=== PATIENT | male | born 1985 | race Caucasian/White ===

== ENCOUNTER 2017-01-27 14:41 | Outpatient (RCR) | payer OTHER | END 2017-01-28 | LOC: M PT 14:41 | PROVIDERS: ATTEND Hospitalist | DX: Z51.89 Encounter for other specified aftercare (principal); M54.6 Pain in thoracic spine ==

== ENCOUNTER 2017-02-23 10:15 | Outpatient (RCR) | payer OTHER | END 2017-02-27 | LOC: M PT 10:15 | PROVIDERS: ATTEND Hospitalist | DX: Z51.89 Encounter for other specified aftercare (principal); M54.6 Pain in thoracic spine ==

== ENCOUNTER 2017-08-01 13:54 | Emergency (ER) | payer OTHER, SELFPAY | END 2017-08-01 15:40 | disposition home or self-care (01) | LOC: M ED 13:54 | DX: S20.229A Contusion of unspecified back wall of thorax, initial encounter (principal); W10.9XXA Fall (on) (from) unspecified stairs and steps, initial encounter; Y92.099 Unspecified place in other non-institutional residence as the place of occurrence of the external cause; Y93.9 Activity, unspecified; I10 Essential (primary) hypertension; Z79.899 Other long term (current) drug therapy | CPT/HCPCS: 72072 ==

== ENCOUNTER → 2018-05-14 | Outpatient (REF) | payer OTHER ==
[~2018-05-14] MED LIST: IBUP-1022 PO; LISI-538 PO; TIZA4CAP PO
== END ==
LOC: M LAB REF 12:30
PROVIDERS: ATTEND Physician Assistant
DX: L05.01 Pilonidal cyst with abscess (principal)

== ENCOUNTER 2018-09-30 13:38 | Emergency (ER) | payer OTHER ==
[~2018-09-30] VITALS: Ht 185.4 cm; Wt 136.7 kg
[2018-09-30] MEDS ORDERED: LIDOCAINE 1% MDV 20ML VIAL IM ONE (14:15)
[2018-09-30] MEDS ORDERED: ADACEL/BOOSTRIX VACCINE (DIPHTH/PERTUSS/ACELL/TETANUS)0.5ML SYR (90715) IM ONE (14:15)
[2018-09-30] MEDS ORDERED: ACETAMINOPHEN 325 MG TAB PO ONE (15:15)
[2018-09-30 15:17] VITALS: BP 138/87
== END 2018-09-30 15:19 | disposition home or self-care (01) ==
LOC: M ED 13:38
DX: S61.217A Laceration without foreign body of left little finger without damage to nail, initial encounter (principal); W29.0XXA Contact with powered kitchen appliance, initial encounter; Y92.89 Other specified places as the place of occurrence of the external cause; Y99.0 Civilian activity done for income or pay; I10 Essential (primary) hypertension; G43.909 Migraine, unspecified, not intractable, without status migrainosus; Z79.899 Other long term (current) drug therapy

== ENCOUNTER → 2018-11-03 | Outpatient (CLI) | payer OTHER ==
[2018-11-03 10:48] LABS: ALBUMIN 3.8 GM/DL (3.2-5.2); ALT/SGPT 72 U/L (12-78); BILIRUBIN,TOTAL 0.4 MG/DL (0.2-1.0); BLOOD UREA NITROGEN 16 MG/DL (7-18); CARBON DIOXIDE LEVEL 29 MEQ/L (21-32); CHLORIDE LEVEL 106 MEQ/L (98-107); CHOLESTEROL LEVEL 176 MG/DL (<200); CREATININE FOR GFR 1.02 MG/DL (0.70-1.30); GLOMERULAR FILTRATION RATE > 60.0 (>60); GLUCOSE, FASTING 128 MG/DL (70-100); HDL CHOLESTEROL 44 MG/DL (>40); LDL CHOLESTEROL 111 MG/DL (<100); NON-HDL-C 132 MG/DL; SODIUM LEVEL 140 MEQ/L (136-145); TOTAL PROTEIN 7.5 GM/DL (6.4-8.2); TRIGLYCERIDES LEVEL 105 MG/DL (<150)
[2018-11-03 11:38] LABS: HIV 1&2 SCREEN CENTAUR NEGATIVE (NEGATIVE)
== END ==
LOC: M LAB 09:46
PROVIDERS: ATTEND Family Medicine
DX: Z00.01 Encounter for general adult medical examination with abnormal findings (principal)

== ENCOUNTER 2018-11-11 05:52 | Day surgery (SDC) | payer OTHER ==
[~2018-11-11] VITALS: Ht 185.4 cm; Wt 134.3 kg
[2018-11-11] MEDS ORDERED: BUPIVACAINE HCL 0.25% 30 ML VIAL As Ordered ONE (06:56)
[2018-11-11] MEDS ORDERED: LIDOCAINE 1% SDV INJ 30 ML VIAL As Ordered ONE (06:56)
[2018-11-11] MEDS ORDERED: LR 1,000 ML IV SCH ×2 (07:00→09:30)
[2018-11-11] MEDS ORDERED: LIDOCAINE 1% MDV 20ML VIAL SQ PRN (07:00)
[2018-11-11] MEDS ORDERED: MIDAZOLAM INJ 2 MG/2 ML VIAL (J2250) As Ordered ONE (07:51)
[2018-11-11] MEDS ORDERED: fentaNYL 100 MCG/2 ML INJECTION (J3010) As Ordered ONE (07:51)
[2018-11-11] MEDS ORDERED: CHLOROPROCAINE 2 % INJ PRES.FREE 20 ML VIAL (J2400) As Ordered ONE (07:51)
[2018-11-11] MEDS ORDERED: PROPOFOL 200 MG/20 ML VIAL As Ordered ONE ×6 (07:51→08:51)
[2018-11-11] MEDS ORDERED: ePHEDrine SULFATE 25 MG/5 ML(5MG/ML) SYRINGE As Ordered ONE (08:15)
[2018-11-11] MEDS ORDERED: BUPIVACAINE HCL 0.25% 10 ML VIAL As Ordered ONE (08:20)
[2018-11-11] MEDS ORDERED: BUPIVACAINE LIPOSOME/PF 1.3% 20ML VIAL (13.3MG/ML)(EXPAREL)(C9290 PER1MG) As Ordered ONE (08:21)
[2018-11-11] MEDS ORDERED: PHENYLephrine HCL 500 MCG/5 ML (100MCG/ML) SYRINGE (J2370) As Ordered ONE (08:34)
[2018-11-11] MEDS ORDERED: PERCOCET 5MG/325MG TAB As Ordered ONE (09:13)
[2018-11-11] MEDS ORDERED: NORCO, ANEXSIA 5/325MG TABLET (HYDROcodone/ACETAMINOPHEN) PO PRN ×3 (09:30)
[2018-11-11] MEDS ORDERED: ONDANSETRON 4MG/2ML VIAL (J2405) IV PRN ×2 (09:30)
[2018-11-11] MEDS ORDERED: KETOROLAC 30 MG/ML VIAL (J1885) IV PRN (09:30)
[2018-11-11] MEDS ORDERED: PERCOCET 5MG/325MG TAB PO PRN (09:30)
[2018-11-11] MEDS ORDERED: fentaNYL 100 MCG/2 ML INJECTION (J3010) IV PRN (09:30)
--- NOTE | 2018-11-11 09:40 | ROOPDOC ---
[facility] Report Of Operation Report of Operation DATE OF PROCEDURE: 11/11/18 PREPROCEDURE DIAGNOSES: Pilonidal cyst and sinus tract. POSTPROCEDURE DIAGNOSES: Same. PROCEDURE: Excision of pilonidal cyst and sinus tract with closure of the defect via rotation flap. SURGEON: Sam Boyer MD CLAIM SERVICE REPRESENTATIVE: Sunil Sheffield (MS III) ANESTHESIA: GENERAL ANESTHESIA ESTIMATED BLOOD LOSS: Approximately 20 mL. COMPLICATIONS: NONE. REMARKS: well formed sinus tract that is about 4-5 cms in length into the deep jean claude cleft midway between sacrum and coccyx. I probed the midline pits for any connections to the tract and opened up one midline pit but found to active connections/sinus tract connecting it.. DESCRIPTION OF PROCEDURE: Patient received a dose of Ancef 2 g IV preoperatively for wound prophylaxis. Hair around the area of the gluteal cleft from the sacrum to the anal verge was clipped. He is brought to the operating room, spinal anesthesia induced and tested. He was placed on a prone jackknife position. Compression boots placed on his lower extremities for DVT prophylaxis. Area around his lower back, gluteal cleft area was then prepped and draped in usual sterile fashion.We paused for a surgical timeout using both pre-incision safety checklist to verify correct patient, procedure site and additional clinical information prior to beginning the procedure. On initial examination he has an area of thickening around the left side of the midline at about the sacral level with no active drainage. About 4-5 cm from this are 2-3 midline class and weighed down below the coccygeal level close to the anal verge or additional 3 midline class all of them is no active drainage. There is some subcutaneous thickening up on the area above the sacral level with previous I&D scars. The subcutaneous veins the tissue was well infiltrated with local anesthesia. I used a combination of 1% lidocaine mixed with 1/4% Marcaine. I started with a vertical midline incision the left side of the midline creating a cruciate skin incision and compressing the area of skin thickening or to previous drainage was towards the area of where the midline class were at about the coccygeal level. This was deepened through the subcutaneous tissue. The thickened tissue and and encapsulated sinus tract was located deep into the subcutaneous tissue. This was well defined. We circumferentially dissected this from the subcutaneous tissue and followed this throughout its course and seems to and at about the coccygeal level deep in the cleft. This was circumferentially dissected free and removed including all the involved subcutaneous tissue and skin. I used a probe to see if there are any connections and the remaining midline class. I opened up the lower midline class close to the anal verge as this seems to still have fresh opening. I did not find any sinus tracts connecting this to the above pilonidal cyst collection. The wound was temporarily packed and hemostasis performed with Bovie cautery. I then created a subcutaneous flap on the right side to move the tissue past the midline onto the other side. Once an adequate flap was created I tacked the deep subcutaneous tissue to the lumbodorsal fascia past the midline on the other side with 2-0 Vicryl. I left a 7 flat SUNSHINE drain in the deep subcutaneous tissue infiltrated the area with a mixture of Exparel and 14% Marcaine and left some Love hemostatic powder in the closed cavity. The flap was then closed in layers to the other side with 3-0 Vicryl in the deep and superficial subcutaneous tissue as well as the dermis and 3-0 nylon placed in a horizontal mattress position using 3-0 nylon. The drain was secured to the skin with same 3-0 nylon. Xeroform dressing as well as bulky gauze dressing and postop underwear was then used to secure the dressings. Patient was then promptly awakened and returned to the recovery room in stable condition. SAM BOYER MD Nov 11, 2018 09:40
[2018-11-11 10:28] VITALS: BP 118/64
== END 2018-11-11 10:45 | disposition home or self-care (01) ==
LOC: M SDC 05:52
PROVIDERS: ATTEND Surgery
DX: L05.91 Pilonidal cyst without abscess (principal); I10 Essential (primary) hypertension; Z87.891 Personal history of nicotine dependence; Z79.899 Other long term (current) drug therapy
CPT/HCPCS: 11772; 88304; C9290; J0690; J2250; J2370; J2400; J3010

== ENCOUNTER → 2019-07-25 | Outpatient (CLI) | payer OTHER ==
--- NOTE | 2019-07-25 18:23 | REP ---
RIGHT SHOULDER, THREE VIEWS: There is no evidence of an acute fracture, dislocation or intrinsic bone disease. I do not see significant degenerative joint disease. IMPRESSION: No fracture or dislocation. Electronically Signed by Daryl Mendieta MD 07/25/2019 08:23 P
== END ==
LOC: M WUC 17:08
PROVIDERS: ATTEND Physician Assistant
DX: M25.511 Pain in right shoulder (principal)

== ENCOUNTER → 2019-08-29 | Outpatient (RCR) | payer OTHER | LOC: M PT 08-15 11:22 | PROVIDERS: ATTEND Orthopaedic Surgery | DX: Z51.89 Encounter for other specified aftercare (principal); M65.811 Other synovitis and tenosynovitis, right shoulder; M75.01 Adhesive capsulitis of right shoulder ==

== ENCOUNTER 2019-09-14 08:45 | Outpatient (RCR) | payer OTHER | END 2019-09-28 | LOC: M PT 08:45 | PROVIDERS: ATTEND Orthopaedic Surgery | DX: M65.811 Other synovitis and tenosynovitis, right shoulder (principal) ==

== ENCOUNTER → 2020-07-26 | Outpatient (CLI) | payer SELFPAY ==
[~2020-07-26] MED LIST changes: -LISI-538 PO; +LISI20TA33 PO
== END ==
LOC: M LABSMTC 12:02
PROVIDERS: ATTEND Pediatrics
DX: Z11.52 Encounter for screening for COVID-19 (principal)

== ENCOUNTER → 2021-07-03 | Outpatient (REF) | payer BC | LOC: M SFHCPLAZ 15:43 | PROVIDERS: ATTEND Family Medicine | DX: Z53.20 Procedure and treatment not carried out because of patient's decision for unspecified reasons (principal) ==

== ENCOUNTER → 2022-03-27 | Outpatient (CLI) | payer BC ==
[2022-03-27 16:06] LABS: HEMATOCRIT 45.1 % (42.0-52.0); MEAN CORPUSCULAR HGB CONC 33.3 g/dl (32.0-36.5); MEAN CORPUSCULAR VOLUME 84.3 fl (80.0-96.0); PLATELET COUNT, AUTOMATED 247 10^3/uL (150-450); RED BLOOD COUNT 5.35 10^6/uL (4.30-6.10); WHITE BLOOD COUNT 6.4 10^3/uL (4.0-10.0)
[2022-03-27 16:22] LABS: HEMOGLOBIN A1c 11.7 %
[2022-03-27 16:52] LABS: ALBUMIN 3.6 GM/DL (3.2-5.2); ALT/SGPT 70 U/L (12-78); BILIRUBIN,TOTAL 0.4 MG/DL (0.2-1.0); BLOOD UREA NITROGEN 11 MG/DL (7-18); CALCIUM LEVEL 9.1 MG/DL (8.5-10.1); CARBON DIOXIDE LEVEL 29 MEQ/L (21-32); CHLORIDE LEVEL 102 MEQ/L (98-107); CHOLESTEROL LEVEL 187 MG/DL (<200); CHOLESTEROL RISK RATIO 4.675 (<5); CREATININE FOR GFR 0.87 MG/DL (0.70-1.30); GLOMERULAR FILTRATION RATE > 60.0 (>60); GLUCOSE, FASTING 329 MG/DL (70-100); HDL CHOLESTEROL 40 MG/DL (>40); LDL CHOLESTEROL 121 MG/DL (<100); NON-HDL-C 147 MG/DL; POTASSIUM SERUM 4.2 MEQ/L (3.5-5.1); SODIUM LEVEL 134 MEQ/L (136-145); TOTAL PROTEIN 7.8 GM/DL (6.4-8.2); TRIGLYCERIDES LEVEL 128 MG/DL (<150)
[2022-03-27 18:04] LABS: HEPATITIS C VIRUS ABY INDEX < 0.0 INDEX (<0.8)
== END ==
LOC: M PLALAB 13:46
PROVIDERS: ATTEND Student in an Organized Health Care Education/Training Program
DX: Z00.00 Encounter for general adult medical examination without abnormal findings (principal); Z13.1 Encounter for screening for diabetes mellitus; Z11.59 Encounter for screening for other viral diseases; Z13.220 Encounter for screening for lipoid disorders

== ENCOUNTER → 2022-07-02 | Outpatient (CLI) | payer BC ==
[2022-07-02 15:11] LABS: APPEARANCE, URINE MANUAL CLEAR (CLEAR); BILIRUBIN, URINE MANUAL NEGATIVE (NEGATIVE); BLOOD URINE MANUAL NEGATIVE (NEGATIVE); COLOR, URINE MANUAL YELLOW (YELLOW); GLUCOSE, URINE (UA) MANUAL 4+(1000 MG/DL) mg/dL (NEGATIVE); KETONE, URINE MANUAL NEGATIVE (NEGATIVE); LEUKOCYTE ESTERASE, URINE MAN NEGATIVE (NEGATIVE); NITRITE, URINE MANUAL NEGATIVE (NEGATIVE); PROTEIN, URINE MANUAL NEGATIVE (NEGATIVE); UROBILINOGEN, URINE MANUAL NORMAL (NORMAL)
[2022-07-02 15:45] LABS: CREATININE, URINE 106.2 MG/DL; MALB URINE SIEMENS < 3.0 MG/DL; MAU/CREAT RATIO 2.8 MCG/MG (0.0-30.0)
[2022-07-02 15:49] LABS: FREE T4 1.16 NG/DL (0.89-1.76)
[2022-07-02 15:50] LABS: THYROID STIMULATING HORMONE 0.812 uIU/ML (0.55-4.78)
[2022-07-02 21:36] LABS: HEMOGLOBIN A1c 7.2 % (4.0-6.0)
== END ==
LOC: M PLALAB 12:45
PROVIDERS: ATTEND Student in an Organized Health Care Education/Training Program
DX: E11.9 Type 2 diabetes mellitus without complications (principal)

== ENCOUNTER → 2022-10-23 | Outpatient (CLI) | payer BC ==
[2022-10-23 15:43] LABS: BASO % 0.5 % (0.0-1.0); EOS # 0.1 10^3/uL (0.0-0.5); EOS % 1.5 % (0.0-3.0); HEMATOCRIT 47.7 % (42.0-52.0); HEMOGLOBIN 15.9 g/dl (13.5-17.5); LYMPH % 26.9 % (24.0-44.0); MEAN CORPUSCULAR HEMOGLOBIN 28.2 pg (27.0-33.0); MEAN CORPUSCULAR HGB CONC 33.3 g/dl (32.0-36.5); MEAN CORPUSCULAR VOLUME 84.7 fl (80.0-96.0); MONO # 0.6 10^3/uL (0.0-0.8); MONO % 7.5 % (2.0-8.0); NEUTROPHILS # 4.6 10^3/uL (1.5-8.5); NEUTROPHILS % 63.5 % (36.0-66.0); PLATELET COUNT, AUTOMATED 261 10^3/uL (150-450); RED BLOOD COUNT 5.63 10^6/uL (4.30-6.10); WHITE BLOOD COUNT 7.3 10^3/uL (4.0-10.0)
[2022-10-23 16:09] LABS: HEMOGLOBIN A1c 6.2 % (4.0-6.0)
[2022-10-23 16:14] LABS: MALB URINE SIEMENS < 3.0 MG/L; MAU/CREAT RATIO 2.4 MCG/MG (0.0-30.0)
[2022-10-23 16:17] LABS: ALBUMIN 4.1 G/DL (3.2-5.2); ALKALINE PHOSPHATASE 74 U/L (46-116); ALT/SGPT 34 U/L (7.0-40); AST/SGOT 15 U/L (<34); BILIRUBIN,TOTAL 0.9 MG/DL (0.3-1.2); BLOOD UREA NITROGEN 19 MG/DL (9-23); CALCIUM LEVEL 8.8 MG/DL (8.5-10.1); CARBON DIOXIDE LEVEL 26 MMOL/L (20-31); CHLORIDE LEVEL 106 MMOL/L (98-107); CHOLESTEROL LEVEL 156 MG/DL (<200); CHOLESTEROL RISK RATIO 3.15 (<5); CREATININE FOR GFR 0.95 MG/DL (0.70-1.30); GLOMERULAR FILTRATION RATE > 60.0 (>60); GLUCOSE, FASTING 98 MG/DL (60-100); HDL CHOLESTEROL 49.5 MG/DL (>40); LDL CHOLESTEROL 89.3 MG/DL (<100); NON-HDL-C 106.5 MG/DL; SODIUM LEVEL 140 MMOL/L (136-145); TOTAL PROTEIN 7.3 G/DL (5.7-8.2); TRIGLYCERIDES LEVEL 86 MG/DL (<150)
[2022-10-23 16:20] LABS: VITAMIN B12 LEVEL 727 PG/ML (211-911)
== END ==
LOC: M PLALAB 13:42
PROVIDERS: ATTEND Student in an Organized Health Care Education/Training Program
DX: I10 Essential (primary) hypertension (principal); E11.9 Type 2 diabetes mellitus without complications; T50.905A Adverse effect of unspecified drugs, medicaments and biological substances, initial encounter

== ENCOUNTER → 2023-01-15 | Outpatient (CLI) | payer BC | LOC: M PLALAB 12:39 | PROVIDERS: ATTEND Student in an Organized Health Care Education/Training Program | DX: E11.9 Type 2 diabetes mellitus without complications (principal) ==

== ENCOUNTER → 2023-03-26 | Outpatient (CLI) | payer BC | LOC: M PLALAB 12:45 | PROVIDERS: ATTEND Student in an Organized Health Care Education/Training Program | DX: E11.9 Type 2 diabetes mellitus without complications (principal) ==

== ENCOUNTER → 2024-03-17 | Outpatient (REF) | payer BC | LOC: M SFHCPLAZ 14:50 | PROVIDERS: ATTEND Family Medicine | DX: Z00.00 Encounter for general adult medical examination without abnormal findings (principal); E11.9 Type 2 diabetes mellitus without complications ==